=== PATIENT | male | born 1940 | race Caucasian/White ===

== ENCOUNTER → 2021-09-10 08:10 | Outpatient (CLI) | payer MEDICARE, OTHER, SELFPAY ==
[2021-09-10 19:34] LABS: TSH w/ Reflex to FT4 3.57 uIU/mL (0.47-4.68)
[2021-09-10 20:07] LABS: Folate 16.3 ng/mL (2.76-20.0); Vitamin B12 525 pg/mL (239-931)
[2021-09-17 15:25] LABS: 1,25-Dihydroxy, Vitamin D-2 <10 pg/mL (.)
== END ==
PROVIDERS: PCP Physician Assistant Medical; Visit Provider Psychiatry & Neurology Neurology
DX: R41.3 Other amnesia (principal); E55.9 Vitamin D deficiency, unspecified; F03.90 Unspecified dementia, unspecified severity, without behavioral disturbance, psychotic disturbance, mood disturbance, and anxiety; E03.9 Hypothyroidism, unspecified
CPT/HCPCS: 82607; 82652; 82746; 84443

== ENCOUNTER → 2021-12-29 09:03 | Outpatient (CLI) | payer MEDICARE, OTHER, SELFPAY ==
[2021-12-29 19:44] LABS: HEMOLYSIS < 15 (0-50)
[2021-12-29 20:02] LABS: Alanine Aminotransferase 18 IU/L (<50); Albumin 3.8 g/dL (3.5-5.0); Albumin Globulin Ratio 1.5 (1.0-2.8); Alkaline Phosphatase 50 U/L (38-126); Aspartate Aminotransferase 30 IU/L (17-59); BUN Creatinine Ratio 11.3 (6-22); Bilirubin Total 0.8 mg/dL (0.2-1.3); Blood Urea Nitrogen 11 mg/dL (9-20); Calcium 8.8 mg/dL (8.4-10.2); Carbon Dioxide 27 mmol/L (22-32); Chloride 106 mmol/L (98-107); Cholesterol 134 mg/dL (140-199); Estimated Glomerular Filt Rate > 60 mL/min (>60); Globulin 2.5 g/dL (1.7-4.1); Glucose 113 mg/dL (80-110); HDL Cholesterol 40 mg/dL (40-60); LDL Cholesterol Calculated 82 mg/dL (<100); Potassium 4.3 mmol/L (3.4-5.1); Sodium 141 mmol/L (137-145); Total Protein 6.3 g/dL (6.3-8.2); Triglycerides 61 mg/dL (35-150)
== END ==
PROVIDERS: PCP Physician Assistant Medical; Visit Provider Family Medicine
DX: Z13.6 Encounter for screening for cardiovascular disorders (principal); Z12.5 Encounter for screening for malignant neoplasm of prostate; Z00.00 Encounter for general adult medical examination without abnormal findings; Z13.1 Encounter for screening for diabetes mellitus; Z13.220 Encounter for screening for lipoid disorders
CPT/HCPCS: 80053; 80061; G0103

== ENCOUNTER → 2022-01-07 11:29 | Outpatient (CLI) | payer MEDICARE, OTHER, SELFPAY ==
[2022-01-07 18:33] LABS: Hemoglobin A1C% w Est Avg Glu 5.3 % (4.0-6.0)
== END ==
PROVIDERS: PCP Physician Assistant Medical; Visit Provider Family Medicine
DX: R73.9 Hyperglycemia, unspecified (principal)
CPT/HCPCS: 83036

== ENCOUNTER → 2022-10-20 13:47 | Outpatient (CLI) | payer MEDICARE, BC, SELFPAY ==
[2022-10-20 19:15] LABS: Add Manual Diff / Slide Review NO; Basophils Absolute Auto 0 /uL (0-100); Basophils Percent Auto 0.2 % (0-2); Eosinophils Absolute Auto 300 /uL (0-450); Eosinophils Percent Auto 6.6 % (2-4); Hematocrit 38.2 % (41-53); Hemoglobin 13.4 g/dL (13.5-17.5); Lymphocytes Absolute Auto 1200 /uL (1100-4500); Lymphocytes Percent Auto 22.4 % (25-40); Mean Corpuscular HGB Conc 35.1 % (30-36); Mean Corpuscular Hemoglobin 33.9 PG (26-34); Mean Corpuscular Volume 96.6 fL (80-100); Monocytes Absolute Auto 500 /uL (0-900); Monocytes Percent Auto 9.7 % (3-14); Neutrophils Absolute Auto 3200 /uL (1500-7000); Neutrophils Percent Auto 61.1 % (50-75); Platelet Count 143 X10^3/uL (150-400); Red Blood Cell Count 3.96 X10^6/uL (4.5-5.9); Red Cell Distribution Width 13.6 % (11.6-14.8); White Blood Cell Count 5.3 X10^3/uL (4.5-11.0)
[2022-10-20 19:32] LABS: BUN Creatinine Ratio 20.6 (6-22); Blood Urea Nitrogen 21 mg/dL (9-20); Calcium 8.7 mg/dL (8.4-10.2); Carbon Dioxide 26 mmol/L (22-32); Chloride 105 mmol/L (98-107); Cholesterol 154 mg/dL (140-199); Estimated Glomerular Filt Rate > 60 mL/min (>60); Glucose 105 mg/dL (80-110); HDL Cholesterol 43 mg/dL (40-60); HEMOLYSIS < 15 (0-50); LDL Cholesterol Calculated 82 mg/dL (<100); Potassium 4.4 mmol/L (3.4-5.1); Sodium 139 mmol/L (137-145); Triglycerides 145 mg/dL (35-150); Uric Acid 3.5 mg/dL (3.5-8.5)
[2022-10-20 20:01] LABS: TSH w/ Reflex to FT4 2.55 uIU/mL (0.47-4.68)
== END ==
PROVIDERS: PCP Family Medicine; Visit Provider Family Medicine
DX: M1A.00X0 Idiopathic chronic gout, unspecified site, without tophus (tophi) (principal); E03.9 Hypothyroidism, unspecified; D69.6 Thrombocytopenia, unspecified; F41.1 Generalized anxiety disorder; I10 Essential (primary) hypertension; R41.89 Other symptoms and signs involving cognitive functions and awareness
CPT/HCPCS: 80048; 80061; 84443; 84550; 85025

== ENCOUNTER → 2022-11-03 13:05 | Outpatient (CLI) | payer MEDICARE, BC, SELFPAY ==
[2022-11-03 20:00] LABS: HEMOLYSIS < 15 (0-50); Iron 136 ug/dL (49-181)
[2022-11-03 20:13] LABS: Percent Iron Saturation 43 % (20-50); Total Iron Binding Capacity 318 ug/dL (261-462); Transferrin 227 mg/dL (206-381)
[2022-11-03 20:56] LABS: Vitamin B12 427 pg/mL (239-931)
== END ==
PROVIDERS: PCP Family Medicine; Visit Provider Family Medicine
DX: D64.9 Anemia, unspecified (principal); D69.6 Thrombocytopenia, unspecified; I10 Essential (primary) hypertension
CPT/HCPCS: 82607; 83540; 83550

== ENCOUNTER → 2022-11-10 12:12 | Outpatient (CLI) | payer MEDICARE, BC, SELFPAY ==
[2022-11-14 17:00] LABS: Fecal Immunochemical Test Negative (Negative)
== END ==
PROVIDERS: PCP Family Medicine; Visit Provider Family Medicine
DX: D64.9 Anemia, unspecified (principal)
CPT/HCPCS: 82274

== ENCOUNTER → 2023-05-29 13:27 | Outpatient (CLI) | payer MEDICARE, BC, SELFPAY ==
[2023-05-29 19:31] LABS: Add Manual Diff / Slide Review NO; Basophils Absolute Auto 0 /uL (0-100); Basophils Percent Auto 0.5 % (0-2); Eosinophils Absolute Auto 400 /uL (0-450); Eosinophils Percent Auto 6.9 % (2-4); Hematocrit 39.8 % (41-53); Hemoglobin 13.9 g/dL (13.5-17.5); Lymphocytes Absolute Auto 1400 /uL (1100-4500); Mean Corpuscular HGB Conc 34.8 % (30-36); Mean Corpuscular Hemoglobin 34.2 PG (26-34); Mean Corpuscular Volume 98.3 fL (80-100); Monocytes Absolute Auto 600 /uL (0-900); Monocytes Percent Auto 10.4 % (3-14); Neutrophils Absolute Auto 3700 /uL (1500-7000); Neutrophils Percent Auto 59.2 % (50-75); Platelet Count 154 X10^3/uL (150-400); Red Blood Cell Count 4.05 X10^6/uL (4.5-5.9); Red Cell Distribution Width 13.4 % (11.6-14.8); White Blood Cell Count 6.2 X10^3/uL (4.5-11.0)
[2023-05-29 19:42] LABS: BUN Creatinine Ratio 19.2 (6-22); Blood Urea Nitrogen 20 mg/dL (9-20); Calcium 9.1 mg/dL (8.4-10.2); Carbon Dioxide 25 mmol/L (22-32); Chloride 105 mmol/L (98-107); Estimated Glomerular Filt Rate > 60 mL/min (>60); Glucose 88 mg/dL (80-110); HEMOLYSIS < 15 (0-50); Potassium 4.5 mmol/L (3.4-5.1); Sodium 139 mmol/L (137-145)
[2023-05-29 20:08] LABS: TSH w/ Reflex to FT4 1.62 uIU/mL (0.47-4.68)
== END ==
PROVIDERS: PCP Family Medicine; Visit Provider Family Medicine
DX: E03.9 Hypothyroidism, unspecified (principal); D64.9 Anemia, unspecified; D69.6 Thrombocytopenia, unspecified; I10 Essential (primary) hypertension; M1A.00X0 Idiopathic chronic gout, unspecified site, without tophus (tophi)
CPT/HCPCS: 80048; 84443; 84550; 85025

== ENCOUNTER 2024-03-30 00:46 | Inpatient (IN) | payer MEDICARE, BC, SELFPAY ==
[2024-03-30] VITALS (12 sets, daily range): BP systolic 135–173; BP diastolic 70–101; PULSE 87–119; RESP 14–25; TEMP 36.2–36.6; O2SAT 91–100; BMI 25.9
--- NOTE | 2024-03-30 01:09 | PC.NURSE ---
IV attempted x 2 without success
--- NOTE | 2024-03-30 01:12 | DI.CT.S_ITS ---
PROCEDURE: CT CERVICAL SPINE WO CON INDICATIONS: unwitnessed fall TECHNIQUE: Noncontrast 3 mm thick sections acquired from the skull base to the T4 level. Sagittal and coronal reformats were then constructed. For radiation dose reduction, the following was used: automated exposure control, adjustment of mA and/or kV according to patient size. COMPARISON: None. FINDINGS: Image quality: Excellent. Bones: No fractures or dislocations. Visualized superior ribs are intact. Moderate, multilevel degenerative disc disease and diffuse facet arthrosis. Soft tissues: Prevertebral soft tissues are normal in thickness. No paravertebral hematomas. No apical pneumothoraces. IMPRESSION: No displaced fracture or traumatic subluxation. Dictated by: Germán Longoria M.D. on 03/30/2024 at 2:00 Approved by: Germán Lonogria M.D. on 03/30/2024 at 2:05
--- NOTE | 2024-03-30 01:12 | DI.CT.S_ITS ---
PROCEDURE: CT HEAD/BRAIN WO CON INDICATIONS: unwitnessed fall TECHNIQUE: Noncontrast 4.5 mm thick angled axial sections acquired from the foramen magnum to the vertex, with coronal and sagittal reformats. For radiation dose reduction, the following was used: automated exposure control, adjustment of mA and/or kV according to patient size. COMPARISON: None. FINDINGS: Image quality: Diagnostic. CSF spaces: There is moderate volume subarachnoid hemorrhage overlying the anterior convexities. Superimposed subdural hematoma along the left cerebral convexity, max diameter 5 mm. Layering blood along the falx and tentorium. Brain: No intracranial bleeds or masses. There is cerebral volume loss for age, with resultant ventricular and sulcal prominence. There are periventricular and deep white matter chronic small vessel ischemic changes. There is intracranial internal carotid artery atherosclerosis. Skull and face: There is a skull fracture through the temporal bone, extending into the mastoid air cells and passing along the intra-articular margin of the TMJ. The fracture line does not extend to the otic capsule. Sinuses: Moderate volume fluid within the left mastoid air cells, presumably blood. Trace fluid within the right maxillary air cells. IMPRESSION: Left temporal bone fracture, which does not appear to extend to the otic capsule. On there is articular involvement with the left TMJ, and extension to the mastoid air cells. Moderate volume subarachnoid hemorrhage. Moderate subdural hematomas. No midline shift or herniation. Findings discussed with Dr. Pepe at to 211 am on 03/30/2024. Dictated by: Germán Longoria M.D. on 03/30/2024 at 2:05 Approved by: Germán Longoria M.D. on 03/30/2024 at 2:13
[2024-03-30 01:35] LABS: Add Manual Diff / Slide Review NO; Basophils Absolute Auto 0 /uL (0-100); Basophils Percent Auto 0.3 % (0-2); Eosinophils Absolute Auto 0 /uL (0-450); Eosinophils Percent Auto 0.2 % (2-4); Hematocrit 39.3 % (41-53); Hemoglobin 13.5 g/dL (13.5-17.5); Lymphocytes Absolute Auto 900 /uL (1100-4500); Lymphocytes Percent Auto 21.5 % (25-40); Mean Corpuscular HGB Conc 34.4 % (30-36); Mean Corpuscular Hemoglobin 33.1 PG (26-34); Mean Corpuscular Volume 96.2 fL (80-100); Monocytes Absolute Auto 500 /uL (0-900); Monocytes Percent Auto 11.6 % (3-14); Neutrophils Absolute Auto 2700 /uL (1500-7000); Neutrophils Percent Auto 66.4 % (50-75); Platelet Count 120 X10^3/uL (150-400); Red Blood Cell Count 4.08 X10^6/uL (4.5-5.9); Red Cell Distribution Width 13.4 % (11.6-14.8)
--- NOTE | 2024-03-30 01:38 | PC.NURSE ---
Pt vomited while lying flat on CT table; Dr Pepe notified, zofran given per verbal order.
[2024-03-30] MEDS: ONDANSETRON 4 MG/2 ML INJ IV ×2 (01:39→03:15)
[2024-03-30 01:47] LABS: Alanine Aminotransferase 39 IU/L (<50); Albumin Globulin Ratio 1.4 (1.0-2.8); Alkaline Phosphatase 84 U/L (38-126); Aspartate Aminotransferase 58 IU/L (17-59); BUN Creatinine Ratio 15.2 (6-22); Blood Urea Nitrogen 20 mg/dL (9-20); Calcium 8.6 mg/dL (8.4-10.2); Carbon Dioxide 23 mmol/L (22-32); Chloride 109 mmol/L (98-107); Estimated Glomerular Filt Rate 53 mL/min (>60); Globulin 2.8 g/dL (1.7-4.1); Glucose 129 mg/dL (80-110); HEMOLYSIS 29 (0-50); Potassium 3.7 mmol/L (3.4-5.1); Sodium 140 mmol/L (137-145); Total Protein 6.8 g/dL (6.3-8.2)
[2024-03-30] MEDS: SODIUM CHLORIDE 0.9% 1,000 ML 1000 ML IV (02:05)
--- NOTE | 2024-03-30 02:12 | ED.FALL ---
HPI - Fall General Chief Complaint: Fall Stated Complaint: unwitnessed fall Time Seen by Provider: 03/30/24 00:46 Source: EMS Mode of arrival: EMS History of Present Illness HPI Narrative: 84-year-old gentleman unwitnessed fall currently living at [facility] history of dementia with hallucinations and generalized decline with frequent falls, hypothyroidism, anemia, thrombocytopenia, depression and BPH. He is brought in by medics. Staff felt that he was close to his baseline according to 1 person in seemed to be less responsive according to another 1. Patient is unable to answer questions slight left facial droop he has blood coming from his left ear. He will open his eyes but is not actively responding to questions. He is able to move all extremities. He has not able to answer any questions. In review of medical records there is a note from his primary care physician on February 27 indicating that his feels that his condition is continuing to deteriorate, he falls easily has a stiff gait, increasing delusions paranoid thoughts with behavioral abnormalities, functional urinary incontinence and behavioral outbursts such that they are having difficulty keeping caretakers employed. Need was started on quetiapine for his delirium. Related Data Home Medications Medication Instructions Recorded Confirmed potassium gluconate 550 mg (90 mg) 550 mg PO DAILY 12/13/21 03/30/24 tablet buspirone 5 mg tablet 5 mg PO DAILY PRN ANXIETY 03/21/24 03/30/24 quetiapine 100 mg tablet See Rx Instructions .Route .COMPLEX 03/25/24 03/30/24 Previous Rx's Medication Instructions Recorded levothyroxine 25 mcg tablet 25 mcg PO DAILY #90 tabs 08/28/23 allopurinol 300 mg tablet 300 mg PO QDAY #90 tabs 03/06/24 acetaminophen 500 mg tablet See Rx Instructions PO Q6H PRN leg 03/21/24 (Tylenol Extra Strength) pain #90 tabs fluticasone propionate 50 2 spray intranasal QDAY ##3 03/21/24 mcg/actuation nasal spray,suspension betaxolol 0.5 % eye drops 1 drp EYE-LEFT BID #10 mL 03/22/24 latanoprost 0.005 % eye drops 1 drp EYE-LEFT DAILY #7.5 mL 03/22/24 fluoxetine 40 mg capsule 40 mg PO DAILY #90 caps 03/25/24 Allergies Allergy/AdvReac Type Severity Reaction Status Date / Time No Known Drug Allergies Allergy Verified 02/28/24 12:02 Review of Systems Review of Systems ROS Unobtainable: Unobtainable due to mental status/LOC Patient History Medical History 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) Frequent falls Hallucinations due to late onset dementia Hypothyroidism (acquired) Anemia Urinary incontinence Thrombocytopenia Hypertension, essential Allergic rhinitis, unspecified Acquired spondylolysis of lumbar spine Social History household members: other Smoking Status: Never smoker alcohol intake: former Smoking Status: Never smoker Exam Initial Vital Signs Initial Vital Signs: Vital Signs Temperature 97.2 F L 03/30/24 00:47 Pulse Rate 119 H 03/30/24 00:47 Respiratory Rate 18 03/30/24 00:47 Blood Pressure 137/70 03/30/24 00:47 Pulse Oximetry 91 03/30/24 00:47 Oxygen Delivery Method Room Air 03/30/24 00:47 General: No acute distress, protecting his airway, blood is draining from his left ear. No other obvious trauma to his head is appreciated. Neck: No obvious step-off with cervical spine palpation HEENT: Red blood is coming from his left ear. This is gently cleaned, tympanic membrane seems to be draining out with the blood. Patient has minimal response to the gentle attempts to clean the blood Respiratory: Lungs are clear to auscultation, no wheezing no rales no rhonchi. Full and symmetrical air movement Cardiac: Tachycardic: Regular rate and rhythm no murmurs no bruits Abdomen: Soft, nontender, good bowel tones, no flank pain Skin: Multiple bruises from previous falls, small can skin tear to the right elbow Neurologic: Left-sided facial droop, he is not oriented to person time and place, he does have nonpurposeful movement of all extremities Extremities: Abrasions and contusions but no obvious bony abnormalities Psych: Significant dementia with inability to answer questions or meaningfully participate with conversations including following commands Course Orders Ordered: Acetaminophen (Acetaminophen 325 Mg Tablet) 650 mg PO Q6H PRN PRN Reason: Fever/Mild Pain (1-3) Artificial Tears (Carboxymethylcellulose Drops) 1 drops EYE-BOTH PRN PRN PRN Reason: Dry Eye(s) Last Admin: 04/01/24 13:58 Dose: 1 drop Documented By: CORAZON Haloperidol (Haloperidol 5 Mg/Ml Vial) 2 mg IV Q1HR PRN PRN Reason: Agitation Hydromorphone HCl (Hydromorphone 0.5 Mg Inj) 0.5 mg IV Q2H PRN PRN Reason: Pain, Severe (7-10) Last Admin: 04/01/24 08:57 Dose: 0.5 mg Documented By: Admin: 04/01/24 07:13 Dose: 0.5 mg Documented By: Admin: 04/01/24 04:50 Dose: 0.5 mg Documented By: Admin: 04/01/24 02:54 Dose: 0.5 mg Documented By: Admin: 04/01/24 01:20 Dose: 0.5 mg Documented By: Admin: 03/31/24 21:11 Dose: 0.5 mg Documented By: Admin: 03/31/24 18:17 Dose: 0.5 mg Documented By: Admin: 03/31/24 15:42 Dose: 0.5 mg Documented By: Admin: 03/31/24 12:47 Dose: 0.5 mg Documented By: Admin: 03/31/24 10:05 Dose: 0.5 mg Documented By: Admin: 03/31/24 06:24 Dose: 0.5 mg Documented By: Admin: 03/31/24 00:50 Dose: 0.5 mg Documented By: Admin: 03/30/24 20:46 Dose: 0.5 mg Documented By: Admin: 03/30/24 18:26 Dose: 0.5 mg Documented By: Admin: 03/30/24 12:40 Dose: 0.5 mg Documented By: AKP Morphine Sulfate 50 mg/ Sodium (Chloride) 50 mls @ 7 mls/hr IV TITRATE MANAN; Protocol Last Admin: 04/01/24 19:32 Dose: 5 mg/hr, 5 mls/hr Documented By: Titration: 04/01/24 19:32 Dose: Infused Documented By: Admin: 04/01/24 11:14 Dose: 5 mg/hr, 5 mls/hr Documented By: CORAZON Latanoprost (Latanoprost 0.005% Ophth 2.5 Ml) 1 drops EYE-LEFT BEDTIME [facility] Last Admin: 04/01/24 21:05 Dose: Not Given Documented By: Admin: 03/31/24 22:01 Dose: Not Given Documented By: Admin: 03/30/24 20:55 Dose: Not Given Documented By: SR Lorazepam (Lorazepam 2 Mg/Ml Inj) 1 mg IV Q1HR PRN PRN Reason: Agitation/Anxiety Last Admin: 04/01/24 19:28 Dose: 1 mg Documented By: Admin: 04/01/24 13:59 Dose: 1 mg Documented By: CORAZON Naloxone HCl (Naloxone 0.4 Mg/Ml Vial) 0.2 mg IV Q2MIN PRN PRN Reason: Opiate Reversal Ondansetron HCl (Ondansetron 4 Mg Odt) 4 mg PO Q8HR PRN PRN Reason: Nausea And Vomiting Sodium Chloride (Sodium Chloride 0.9% Flush) 10 ml IV PRN PRN PRN Reason: Flush Sodium Chloride (Sodium Chloride 0.9% Flush) 10 ml IV BID [facility] Last Admin: 04/01/24 20:46 Dose: Not Given Documented By: Admin: 04/01/24 08:57 Dose: 10 ml Documented By: Admin: 03/31/24 22:01 Dose: 10 ml Documented By: Admin: 03/31/24 10:05 Dose: 10 ml Documented By: Admin: 03/30/24 20:57 Dose: 10 ml Documented By: Discontinued Medications Buspirone HCl (Buspirone 5 Mg Tablet) 5 mg PO DAILY PRN PRN Reason: Anxiety Fluoxetine HCl (Fluoxetine 20 Mg Capsule) 40 mg PO DAILY [facility] Last Admin: 04/01/24 08:40 Dose: Not Given Documented By: Admin: 03/31/24 08:23 Dose: Not Given Documented By: Admin: 03/30/24 09:26 Dose: Not Given Documented By: ROSALBA Haloperidol (Haloperidol 5 Mg/Ml Vial) 5 mg IV NOW ONE Stop: 03/30/24 03:12 Last Admin: 03/30/24 03:16 Dose: 5 mg Documented By: DAKOTA Haloperidol (Haloperidol 5 Mg/Ml Vial) 5 mg IV Q4HR PRN PRN Reason: Agitation Last Admin: 04/01/24 01:20 Dose: 5 mg Documented By: Admin: 03/31/24 21:11 Dose: 5 mg Documented By: Admin: 03/31/24 10:34 Dose: 5 mg Documented By: Admin: 03/31/24 05:28 Dose: 5 mg Documented By: Admin: 03/30/24 23:14 Dose: 5 mg Documented By: Admin: 03/30/24 17:47 Dose: 5 mg Documented By: Admin: 03/30/24 09:31 Dose: 5 mg Documented By: ROSALBA Hydromorphone HCl (Hydromorphone 0.5 Mg Inj) 0.5 mg IV Q15MIN PRN PRN Reason: Pain, Last Admin: 03/30/24 02:40 Dose: 0.5 mg Documented By: KUSH Sodium Chloride (Normal Saline 0.9%) 1,000 mls @ 1,000 mls/hr IV BOLUS ONE Stop: 03/30/24 02:56 Last Infusion: 03/30/24 03:23 Dose: Infused Documented By: Admin: 03/30/24 02:05 Dose: 1,000 mls/hr Documented By: KUSH Levothyroxine Sodium (Levothyroxine 25 Mcg Tablet) 25 mcg PO QACBREAK [facility] Last Admin: 04/01/24 06:28 Dose: Not Given Documented By: Admin: 03/31/24 06:38 Dose: Not Given Documented By: Admin: 03/30/24 07:36 Dose: Not Given Documented By: ROSALBA Lorazepam (Lorazepam 2 Mg/Ml Inj) 2 mg IV NOW ONE Stop: 03/30/24 03:39 Last Admin: 03/30/24 03:43 Dose: 2 mg Documented By: KUSH Ondansetron HCl (Ondansetron 4 Mg/2 Ml Inj) 4 mg IV NOW ONE Stop: 03/30/24 01:38 Last Admin: 03/30/24 01:39 Dose: 4 mg Documented By: DAKOTA Ondansetron HCl (Ondansetron 4 Mg/2 Ml Inj) 4 mg IV NOW ONE Stop: 03/30/24 03:24 Last Admin: 03/30/24 03:15 Dose: 4 mg Documented By: KUSH Oxycodone HCl (Oxycodone Ir 5 Mg Tablet) 5 mg PO Q3H PRN PRN Reason: Pain, Moderate (4-6) Quetiapine Fumarate (Quetiapine 100 Mg Tablet) 100 mg PO DAILY [facility] Last Admin: 04/01/24 08:41 Dose: Not Given Documented By: Admin: 03/31/24 08:24 Dose: Not Given Documented By: Admin: 03/30/24 09:26 Dose: Not Given Documented By: ROSALBA Quetiapine Fumarate (Quetiapine 100 Mg Tablet) 200 mg PO BEDTIME [facility] Last Admin: 03/31/24 22:01 Dose: Not Given Documented By: Admin: 03/30/24 20:55 Dose: Not Given Documented By: Vital Signs Vital signs: Vital Signs - 8 hr 03/30/24 00:47 03/30/24 00:54 03/30/24 01:00 Temperature 97.2 F L Pulse Rate 119 H 113 H 114 H Respiratory Rate 18 21 21 Blood Pressure 137/70 Pulse Oximetry 91 96 94 Oxygen Delivery Method Room Air 03/30/24 01:00 03/30/24 01:42 03/30/24 01:42 Temperature Pulse Rate 109 H Respiratory Rate Blood Pressure 158/84 H 173/80 H Pulse Oximetry 93 Oxygen Delivery Method 03/30/24 02:00 03/30/24 02:00 03/30/24 02:30 Temperature Pulse Rate 107 H 116 H Respiratory Rate 25 H 23 Blood Pressure 144/70 H Pulse Oximetry 95 97 Oxygen Delivery Method 03/30/24 02:30 03/30/24 03:00 03/30/24 03:00 Temperature Pulse Rate 101 H Respiratory Rate 14 Blood Pressure 173/76 H 164/78 H Pulse Oximetry 93 Oxygen Delivery Method MDM - Fall Lab Data 03/30/24 01:20 03/30/24 01:20 Labs: Lab Results 03/30/24 Range/Units 01:20 WBC 4.0 L (4.5-11.0) X10^3/uL RBC 4.08 L (4.5-5.9) X10^6/uL Hgb 13.5 (13.5-17.5) g/dL Hct 39.3 L (41-53) % MCV 96.2 (80-100) fL MCH 33.1 (26-34) PG MCHC 34.4 (30-36) % RDW 13.4 (11.6-14.8) % Plt Count 120 L (150-400) X10^3/uL Neut % (Auto) 66.4 (50-75) % Lymph % (Auto) 21.5 L (25-40) % [place] % (Auto) 11.6 (3-14) % Eos % (Auto) 0.2 L (2-4) % Baso % (Auto) 0.3 (0-2) % Neut # (Auto) 2700 (4156-8585) /uL Lymph # (Auto) 900 L (7992-8250) /uL [place] # (Auto) 500 (0-900) /uL Eos # (Auto) 0 (0-450) /uL Baso # (Auto) 0 (0-100) /uL Sodium 140 (137-145) mmol/L Potassium 3.7 (3.4-5.1) mmol/L Chloride 109 H (98-107) mmol/L Carbon Dioxide 23 (22-32) mmol/L BUN 20 (9-20) mg/dL Creatinine 1.32 H (0.66-1.25) mg/dL Estimated GFR 53 L (>60) mL/min BUN/Creatinine Ratio 15.2 (6-22) Glucose 129 H (80-110) mg/dL Calcium 8.6 (8.4-10.2) mg/dL Total Bilirubin 1.0 (0.2-1.3) mg/dL AST 58 (17-59) IU/L ALT 39 (<50) IU/L Alkaline Phosphatase 84 (38-126) U/L Total Protein 6.8 (6.3-8.2) g/dL Albumin 4.0 (3.5-5.0) g/dL Globulin 2.8 (1.7-4.1) g/dL Albumin/Globulin Ratio 1.4 (1.0-2.8) Imaging Data CT scan - head: Radiologist's Impression: PROCEDURE: CT HEAD/BRAIN WO CON INDICATIONS: unwitnessed fall TECHNIQUE: Noncontrast 4.5 mm thick angled axial sections acquired from the foramen magnum to the vertex, with coronal and sagittal reformats. For radiation dose reduction, the following was used: automated exposure control, adjustment of mA and/or kV according to patient size. COMPARISON: None. FINDINGS: Image quality: Diagnostic. CSF spaces: There is moderate volume subarachnoid hemorrhage overlying the anterior convexities. Superimposed subdural hematoma along the left cerebral convexity, max diameter 5 mm. Layering blood along the falx and tentorium. Brain: No intracranial bleeds or masses. There is cerebral volume loss for age, with resultant ventricular and sulcal prominence. There are periventricular and deep white matter chronic small vessel ischemic changes. There is intracranial internal carotid artery atherosclerosis. Skull and face: There is a skull fracture through the temporal bone, extending into the mastoid air cells and passing along the intra-articular margin of the TMJ. The fracture line does not extend to the otic capsule. Sinuses: Moderate volume fluid within the left mastoid air cells, presumably blood. Trace fluid within the right maxillary air cells. IMPRESSION: Left temporal bone fracture, which does not appear to extend to the otic capsule. On there is articular involvement with the left TMJ, and extension to the mastoid air cells. Moderate volume subarachnoid hemorrhage. Moderate subdural hematomas. No midline shift or herniation. Findings discussed with Dr. Pepe at to 211 am on 03/30/2024. Dictated by: Germán Longoria M.D. on 03/30/2024 at 2:05 MDM Narrative Medical decision making narrative: CC: Unwitnessed fall at nursing facility Complicating co-morbidities: Advanced dementia Data collected from: Medics, medical records Social determinants of health that may influence the patients condition: Significant progressive dementia with dramatic decline overall in last number of months Medical records reviewed: Primary care note from February reviewed and summarized in HPI Differential considered: Intracranial hemorrhage, basilar skull fracture, cervical spine fracture, stroke, Exam documented above, pertinent findings include: Blood actively draining from his left ear canal. Slight left facial droop. Nonpurposeful movement of all 4 extremities. He has not verbal but is protecting his airway at this time. Slightly tachycardic Lab Test results independently reviewed as above. Pertinent findings: CBC shows white count at 4, no significant anemia, platelets at 120 Chemistries show slight bump in creatinine remainder is unremarkable Imaging studies independently reviewed: CT scan of the head shows multiple abnormalities including - Left temporal bone fracture, which does not appear to extend to the otic capsule. - articular involvement with the left TMJ, and extension to the mastoid air cells. -Moderate volume subarachnoid hemorrhage. -Moderate subdural hematomas. -No midline shift or herniation. Cervical spine CT does not show acute fractures Consultations: Real-time discussion with Radiology regarding CT scan abnormalities Treatments: Fluids, Zofran, parenteral narcotics for pain behaviors Re-evaluations: 230am phone call to his at [phone]. She currently is at home on [address]. I have explained to her that he has had quite a bit of bleeding in his head along with a skull fracture after a fall. We will be admitting him to [facility] and will keep him DNR/DNI. At this point he is maintaining his airway. We will need to see how he progresses over the next number of hours to decide if complete hospice care will be appropriate or if he will be able to return to [facility]. She will be catching the next available [facility] from [facility] [address] patient began vomiting in CT scan. Was given Zofran. Another dose of Zofran given for more vomiting this point. He is tachycardic. Eyes becoming more restless and agitated. We will try 5 mg of Haldol to see if this helps with both the continued nausea as well as the restlessness. 330 Son called. findings, concerns and plans are reviewed with him. he agrees with plans as outlined and understands the critical prognosis 340am increasing agitation and nausea. 2mg haldol tried, minimally helpful. Will try 2 mg of ativan to help with both the agitation and nausea Discussion: 84-year-old gentleman with progressive dementia he has been in a dementia care facility for the last 2 weeks. Unwitnessed fall today with basilar skull fracture, subdural and subarachnoid hemorrhages. DNR DNI at this point waiting for his to decide if he needs to move to full comfort measures and need to continue to clinically evaluate him. His is in route. Will treat his pain as behaviors indicate he is hurting. We will contact our hospitalist service. Reason for hospital admission is to help make sure that transition back to [facility] is appropriate, he may be more appropriate to go to long-term side with anticipation of full comfort care, if he does begin to rapidly deteriorate in the next couple of hours will obviously shift to full comfort care. It may be that his bleeding stops and he is continuing in his significant dementia decline and could go back to [facility] dementia unit. I believe discussions with the , serial evaluations of the patient over the next 12 hours will help with appropriate disposition and discharge care. Care is reviewed with Dr. Odell Critical Care Time Critical Care Time Critical Care Time: Yes Total Critical Care Time: 36 Attestation: Critical care time is separate from other billable procedures. There is a high probability of a significant, sudden or life-threatening deterioration that requires my full and direct attention, intervention and personal management. This critical care time includes consultation with family and other consulting doctors, review of records, and interpretation of data from labs, EKGs and imaging as well as managements of trauma, intracranial hemorrhage, increasing agitation, multiple family discussions regarding end of life care Discharge Plan Departure Patient Disposition: Admitted as Observation Clinical Impression: Subarachnoid hemorrhage, Subdural hemorrhage, DNR (do not resuscitate) Advanced dementia Qualifiers: Dementia type: unspecified type Dementia behavioral or psychological symptom: with other behavioral disturbance Qualified Code(s): F03.C18 - Unspecified dementia, severe, with other behavioral disturbance Fall Qualifiers: Encounter type: initial encounter Qualified Code(s): W19.XXXA - Unspecified fall, initial encounter Basilar skull fracture Qualifiers: Encounter type: initial encounter Fracture type: open Laterality: left Qualified Code(s): S02.102B - Fracture of base of skull, left side, initial encounter for open fracture Admit Date/Time: 03/30/24 03:09 Admit Provider: Andres Anand
--- NOTE | 2024-03-30 02:30 | PC.NURSE ---
pt becoming restless attempting to get out of bed, confused, briefs changed and warm blanket given
[2024-03-30] MEDS: HYDROMORPHONE 0.5 MG INJ IV ×4 (02:40→20:46)
[2024-03-30] MEDS: HALOPERIDOL 5 MG/ML VIAL IV ×4 (03:16→23:14)
--- NOTE | 2024-03-30 03:20 | PC.NURSE ---
pt vomiting, assisted pt to the side and suctioned, bed linens changed, pt medicated per orders, warm blankets given and lights dimmed
[2024-03-30] MEDS: LORazepam 2 MG/ML INJ IV (03:43)
--- NOTE | 2024-03-30 03:49 | P.HP_ITS ---
History of Present Illness History of Present Illness Date Patient Seen: 03/30/24 Chief complaint: unwitnessed fall Narrative: 84 y/o resident of memory care with PMH of dementia, recurrent falls and worsening behaviors lately, presented after he fell, with Lt temporal bone fracture, SAH, SDH. He is DNR, DNI and unable to make decisions due to cognitive deficits. Placed in observation. 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) Frequent falls Hallucinations due to late onset dementia Hypothyroidism (acquired) Anemia Urinary incontinence Thrombocytopenia Hypertension, essential Allergic rhinitis, unspecified Acquired spondylolysis of lumbar spine Social History household members: other Smoking Status: Never smoker alcohol intake: former Meds Home Medications and Allergies Home Medications Medication Instructions Recorded Confirmed Type potassium gluconate 550 mg (90 mg) 550 mg PO DAILY 12/13/21 03/30/24 History tablet levothyroxine 25 mcg tablet 25 mcg PO DAILY #90 tabs 08/28/23 03/30/24 Rx allopurinol 300 mg tablet 300 mg PO QDAY #90 tabs 03/06/24 03/30/24 Rx acetaminophen 500 mg tablet See Rx Instructions PO Q6H PRN leg 03/21/24 03/30/24 Rx (Tylenol Extra Strength) pain #90 tabs buspirone 5 mg tablet 5 mg PO DAILY PRN ANXIETY 03/21/24 03/30/24 History fluticasone propionate 50 2 spray intranasal QDAY ##3 03/21/24 03/30/24 Rx mcg/actuation nasal spray,suspension betaxolol 0.5 % eye drops 1 drp EYE-LEFT BID #10 mL 03/22/24 03/30/24 Rx latanoprost 0.005 % eye drops 1 drp EYE-LEFT DAILY #7.5 mL 03/22/24 03/30/24 Rx fluoxetine 40 mg capsule 40 mg PO DAILY #90 caps 03/25/24 03/30/24 Rx quetiapine 100 mg tablet See Rx Instructions .Route .COMPLEX 03/25/24 03/30/24 History Allergies Allergy/AdvReac Type Severity Reaction Status Date / Time No Known Drug Allergies Allergy Verified 02/28/24 12:02 Review of Systems Review of Systems Narrative: unobtainable due to cognitive deficits Exam Vital Signs (past 8 hours): - 03/30/24 00:47 03/30/24 00:54 03/30/24 01:00 Temperature 97.2 F L Pulse Rate 119 H 113 H 114 H Respiratory Rate 18 21 21 Blood Pressure 137/70 Pulse Oximetry 91 96 94 Oxygen Delivery Method Room Air 03/30/24 01:00 03/30/24 01:42 03/30/24 01:42 Temperature Pulse Rate 109 H Respiratory Rate Blood Pressure 158/84 H 173/80 H Pulse Oximetry 93 Oxygen Delivery Method 03/30/24 02:00 03/30/24 02:00 03/30/24 02:30 Temperature Pulse Rate 107 H 116 H Respiratory Rate 25 H 23 Blood Pressure 144/70 H Pulse Oximetry 95 97 Oxygen Delivery Method 03/30/24 02:30 03/30/24 03:00 03/30/24 03:00 Temperature Pulse Rate 101 H Respiratory Rate 14 Blood Pressure 173/76 H 164/78 H Pulse Oximetry 93 Oxygen Delivery Method Oxygen Delivery Method Room Air HENMT Other: traumatic, he is bleeding from Lt ear Eyes Other: equal pupils, eomi Resp Other: poor respiratory effort Cardio Other: RRR Neuro Other: cognitive deficits, moves all extremities Objective Labs 03/30/24 01:20 03/30/24 01:20 Labs: Laboratory Results - last 24 hr 03/30/24 01:20 WBC 4.0 L RBC 4.08 L Hgb 13.5 Hct 39.3 L MCV 96.2 MCH 33.1 MCHC 34.4 RDW 13.4 Plt Count 120 L Neut % (Auto) 66.4 Lymph % (Auto) 21.5 L [place] % (Auto) 11.6 Eos % (Auto) 0.2 L Baso % (Auto) 0.3 Neut # (Auto) 2700 Lymph # (Auto) 900 L [place] # (Auto) 500 Eos # (Auto) 0 Baso # (Auto) 0 Sodium 140 Potassium 3.7 Chloride 109 H Carbon Dioxide 23 BUN 20 Creatinine 1.32 H Estimated GFR 53 L BUN/Creatinine Ratio 15.2 Glucose 129 H Calcium 8.6 Total Bilirubin 1.0 AST 58 ALT 39 Alkaline Phosphatase 84 Total Protein 6.8 Albumin 4.0 Globulin 2.8 Albumin/Globulin Ratio 1.4 Assessment & Plan Assessment and plan (1) Subdural hemorrhage: Status: Acute (2) Subarachnoid hemorrhage: Status: Acute (3) Basilar skull fracture: Qualifiers: Encounter type: initial encounter Fracture type: open Laterality: left Qualified Code(s): S02.102B - Fracture of base of skull, left side, initial encounter for open fracture Status: Acute (4) Advanced dementia: Qualifiers: Dementia behavioral or psychological symptom: with other behavioral disturbance Dementia type: unspecified type Qualified Code(s): F03.C18 - Unspecified dementia, severe, with other behavioral disturbance Status: Acute (5) BPH (benign prostatic hyperplasia): Qualifiers: Lower urinary tract symptom detail: urinary frequency Lower urinary tract symptom presence: symptoms present Qualified Code(s): N40.1 - Benign prostatic hyperplasia with lower urinary tract symptoms; R35.0 - Frequency of micturition Status: Acute (6) Gout: Qualifiers: Chronicity: chronic Gout etiology: idiopathic Gout site: unspecified site Presence of tophus: without tophus Qualified Code(s): M1A.00X0 - Idiopathic chronic gout, unspecified site, without tophus (tophi) Status: Acute Assessment & Plan narrative: GLF, Traumatic Head Injury - recurrent falls - fractured Lt temporal bone, SAH SDH, w/o midline shift - placed in observation for comfort care overnight - transfer to memory care in am, likely with hospice Dementia, Anxiety, Depression - progressive cognitive deficits - poor prognosis - continues with Seroquel, Prozac, Buspar Glaucoma - eye drops DVT prohylaxis - SCDs Time-Based Coding :: [TOTAL MINUTES] spent with patient and on the chart (including review of chart, obtaining history, exam, reviewing outside data, placing orders, documenting exam and treatment plan, and counseling patient) on [DATE].
--- NOTE | 2024-03-30 05:10 | PC.ADMIT ---
[email or web address] Admission Note: The patient,Scottie Owen,84 y/o, was given written information regarding hospital policies, unit procedures and contact persons. Patient's smoking status: Never smoker. Vital Signs - 8 hr 03/30/24 00:47 03/30/24 00:54 03/30/24 01:00 Temperature 97.2 F L Pulse Rate 119 H 113 H 114 H Respiratory Rate 18 21 21 Blood Pressure 137/70 Pulse Oximetry 91 96 94 Oxygen Delivery Method Room Air Oxygen Flow Rate 03/30/24 01:00 03/30/24 01:42 03/30/24 01:42 Temperature Pulse Rate 109 H Respiratory Rate Blood Pressure 158/84 H 173/80 H Pulse Oximetry 93 Oxygen Delivery Method Oxygen Flow Rate 03/30/24 02:00 03/30/24 02:00 03/30/24 02:30 Temperature Pulse Rate 107 H 116 H Respiratory Rate 25 H 23 Blood Pressure 144/70 H Pulse Oximetry 95 97 Oxygen Delivery Method Oxygen Flow Rate 03/30/24 02:30 03/30/24 03:00 03/30/24 03:00 Temperature Pulse Rate 101 H Respiratory Rate 14 Blood Pressure 173/76 H 164/78 H Pulse Oximetry 93 Oxygen Delivery Method Oxygen Flow Rate 03/30/24 04:24 03/30/24 04:30 03/30/24 05:05 Temperature 97.7 F Pulse Rate 119 H 118 H Respiratory Rate 18 Blood Pressure 162/101 H 162/101 H Pulse Oximetry 94 Oxygen Delivery Method Nasal Cannula Oxygen Flow Rate 5 Patient up from ED via stretcher. Very somulant d/t multiple meds given for agitation and confusion. No vomiting since up to ac bed. Blood coming from lf ear but no actual damage to ear, chucks pads placed for drainage. O2 placed into mouth, pt mouth breathing. Sats up to 94% on 5L. Patient is resting in bed at this time.
--- NOTE | 2024-03-30 07:46 | PM.HP.1 ---
History of Present Illness History of Present Illness Date Patient Seen: 03/30/24 Chief complaint: unwitnessed fall Narrative: From night doctor: 84 y/o resident of memory care with PMH of dementia, recurrent falls and worsening behaviors lately, presented after he fell, with Lt temporal bone fracture, SAH, SDH. He is DNR, DNI and unable to make decisions due to cognitive deficits. Placed in observation. Additional information: The patient is not able to communicate. I did meet with 2 sons, friend, the . He was been in memory care for about 2 weeks. He does have history of falls prior to this as well as progressive dementia and inability to be cared for at home. He was a advance directive which really does not spell out DNR but does indicate that he would not want to be maintained indefinitely if he had a terminal illness or injury. We discussed the severity of his head trauma with subdural hematoma and subarachnoid hemorrhage. 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) Frequent falls Hallucinations due to late onset dementia Hypothyroidism (acquired) Anemia Urinary incontinence Thrombocytopenia Hypertension, essential Allergic rhinitis, unspecified Acquired spondylolysis of lumbar spine Social History household members: other Smoking Status: Never smoker alcohol intake: former Meds Home Medications and Allergies Home Medications Medication Instructions Recorded Confirmed Type potassium gluconate 550 mg (90 mg) 550 mg PO DAILY 12/13/21 03/30/24 History tablet levothyroxine 25 mcg tablet 25 mcg PO DAILY #90 tabs 08/28/23 03/30/24 Rx allopurinol 300 mg tablet 300 mg PO QDAY #90 tabs 03/06/24 03/30/24 Rx acetaminophen 500 mg tablet See Rx Instructions PO Q6H PRN leg 03/21/24 03/30/24 Rx (Tylenol Extra Strength) pain #90 tabs buspirone 5 mg tablet 5 mg PO DAILY PRN ANXIETY 03/21/24 03/30/24 History fluticasone propionate 50 2 spray intranasal QDAY ##3 03/21/24 03/30/24 Rx mcg/actuation nasal spray,suspension betaxolol 0.5 % eye drops 1 drp EYE-LEFT BID #10 mL 03/22/24 03/30/24 Rx latanoprost 0.005 % eye drops 1 drp EYE-LEFT DAILY #7.5 mL 03/22/24 03/30/24 Rx fluoxetine 40 mg capsule 40 mg PO DAILY #90 caps 03/25/24 03/30/24 Rx quetiapine 100 mg tablet See Rx Instructions .Route .COMPLEX 03/25/24 03/30/24 History Allergies Allergy/AdvReac Type Severity Reaction Status Date / Time No Known Drug Allergies Allergy Verified 02/28/24 12:02 Review of Systems Review of Systems Narrative: Not obtainable due to dementia. Exam Vital Signs (past 8 hours): - 03/30/24 00:47 03/30/24 00:54 03/30/24 01:00 Temperature 97.2 F L Pulse Rate 119 H 113 H 114 H Respiratory Rate 18 21 21 Blood Pressure 137/70 Pulse Oximetry 91 96 94 Oxygen Delivery Method Room Air Oxygen Flow Rate 03/30/24 01:00 03/30/24 01:42 03/30/24 01:42 Temperature Pulse Rate 109 H Respiratory Rate Blood Pressure 158/84 H 173/80 H Pulse Oximetry 93 Oxygen Delivery Method Oxygen Flow Rate 03/30/24 02:00 03/30/24 02:00 03/30/24 02:30 Temperature Pulse Rate 107 H 116 H Respiratory Rate 25 H 23 Blood Pressure 144/70 H Pulse Oximetry 95 97 Oxygen Delivery Method Oxygen Flow Rate 03/30/24 02:30 03/30/24 03:00 03/30/24 03:00 Temperature Pulse Rate 101 H Respiratory Rate 14 Blood Pressure 173/76 H 164/78 H Pulse Oximetry 93 Oxygen Delivery Method Oxygen Flow Rate 03/30/24 04:24 03/30/24 04:30 03/30/24 05:05 Temperature 97.7 F Pulse Rate 119 H 118 H Respiratory Rate 18 Blood Pressure 162/101 H 162/101 H Pulse Oximetry 94 Oxygen Delivery Method Nasal Cannula Oxygen Flow Rate 5 Oxygen Delivery Method Nasal Cannula Oxygen Flow Rate 5 Narrative Exam Narrative: Somnolent, calm. Non-responsive. Non-verbal. Normocephalic skull, anicteric sclera, right artificial eye. Oropharynx unremarkable, no droop. Neck supple, midline trachea, no adenopathy. Lungs clear, normal rate and effort. Heart regular, no murmur gallop or rub. Abdomen is soft, non distended and non tender. Extremities are free of edema. Skin is free of rash or lesions. Joints are not swollen or deformed. No posturing, minimal movement spontaneously arms or legs. No vocalization. Objective Imaging CT scan - head: Radiologist's impression: Left temporal bone fracture, which does not appear to extend to the otic capsule. On there is articular involvement with the left TMJ, and extension to the mastoid air cells. Moderate volume subarachnoid hemorrhage. Moderate subdural hematomas. No midline shift or herniation. CT C-spine:: Radiologist's impression: No displaced fracture or traumatic subluxation. Labs 03/30/24 01:20 03/30/24 01:20 Labs: Laboratory Results - last 24 hr 03/30/24 01:20 WBC 4.0 L RBC 4.08 L Hgb 13.5 Hct 39.3 L MCV 96.2 MCH 33.1 MCHC 34.4 RDW 13.4 Plt Count 120 L Neut % (Auto) 66.4 Lymph % (Auto) 21.5 L [place] % (Auto) 11.6 Eos % (Auto) 0.2 L Baso % (Auto) 0.3 Neut # (Auto) 2700 Lymph # (Auto) 900 L [place] # (Auto) 500 Eos # (Auto) 0 Baso # (Auto) 0 Sodium 140 Potassium 3.7 Chloride 109 H Carbon Dioxide 23 BUN 20 Creatinine 1.32 H Estimated GFR 53 L BUN/Creatinine Ratio 15.2 Glucose 129 H Calcium 8.6 Total Bilirubin 1.0 AST 58 ALT 39 Alkaline Phosphatase 84 Total Protein 6.8 Albumin 4.0 Globulin 2.8 Albumin/Globulin Ratio 1.4 Assessment & Plan Assessment & Plan narrative: GLF, Traumatic Head Injury - recurrent falls - fractured Lt temporal bone, SAH SDH, w/o midline shift - placed in observation for comfort care overnight - transfer to memory care in am, likely with hospice Dementia, Anxiety, Depression - progressive cognitive deficits - poor prognosis - continues with Seroquel, Prozac, Buspar Glaucoma - eye drops PLAN: -DNR status, discussed with family. -hospice referral, discussed with family. -repeat CT at 2:00 p.m. to help prognosticate timelines. -Haldol prn. DVT prohylaxis - SCDs Time-Based Coding :: 35 min spent with patient and on the chart (including review of chart, obtaining history, exam, reviewing outside data, placing orders, documenting exam and treatment plan, and counseling patient) on 03/30. Quality MIPS - Admit I confirm the patient?s Advance Care Plan is present, Code status is documented, Surrogate decision maker is in patient?s record [If Yes, STOP here]: Yes MIPS - Meds 'Current medications' to include all prescriptions, [id number] products, herbals, cannabis/cannabidiol products, and vitamin/mineral/dietary (nutritional) supplements. I have utilized all available resources to obtain, update, or review the patient?s current medications. [If Yes, STOP here]: Yes
--- NOTE | 2024-03-30 09:06 | CM.DANOTE ---
Initial DCP Assessment Note Pt is an 84 yo male, has been living at [facility] for the past few weeks, was at home w/spouse on [facility] previously. Patient arrives after an unwitnessed fall at [facility], record indicates patient has advanced dementia and has been declining rapidly. PCP: Prabhu Lan ([facility]) Payer: [facility]/[employer] [place] Reviewed chart, met w/patient's son at bedside this morning, patient is not responsive during this visit, appears comfortable. Son explains his step mom, patient's , is traveling from [facility] this morning. Patient's other son Germán is also on his way. This WET POUR SUPERVISOR will wait for family arrival to complete initial assessment and discuss next steps in plan of care. CM team will plan to follow clinical course closely. TERESA Mares Discharge Planning/Care Management CM Discharge Assessment Start: 03/30/24 09:03 Freq: Status: Active Protocol: Document 03/30/24 09:03 JACKIE (Rec: 03/30/24 09:06 JACKIE [id number]) Discharge Planning Assessment Assigned Dust Control Engineer TERESA Cruz DPOA/Assigned Designee Name Maria C Owen, spouse Contact Information [phone] Advance Directives? No History Provided By Family Member,Medical Record Prior Living Arrangements Assisted Living Household Members other Type of transporation used prior to Relies on Others admit Facility Name Admitted From: [facility] Willing to Return to Facility? Yes Independent with ADL's No Is patient alert and oriented? No Needs Assistance With Bathing,Eating,Grooming,Meal Prep,Toileting,Managing Medications,Home Chores / Shopping Barriers to Discharge Yes Comment Need goals of care conversation with spouse/ family Transportation Arrangement TBD
--- NOTE | 2024-03-30 13:50 | CM.DPNOTE ---
DCP Cont Met w/patient's spouse and two sons in room; family has met with provider and have decided on hospice care. Family prefers patient discharge back to [facility] w/hospice if possible. Placed call to [facility] spoke with Josefina, faxed referral. There will be no available RN spots until early next week and the earliest DME can be delivered to [facility] is Monday. Emailed Nichole [email or web address] [phone] at [facility] to start discussion about patient and the coordination of discharge plan. CM team will plan to follow closely. JACKIE
--- NOTE | 2024-03-30 14:00 | DI.CT.S_ITS ---
PROCEDURE: CT HEAD/BRAIN WO CON INDICATIONS: FU SDH, SAH TECHNIQUE: Noncontrast 4.5 mm thick angled axial sections acquired from the foramen magnum to the vertex, with coronal and sagittal reformats. For radiation dose reduction, the following was used: automated exposure control, adjustment of mA and/or kV according to patient size. COMPARISON: [facility], CT, CT HEAD/BRAIN WO CON, 03/30/2024, 1:17. FINDINGS: CSF spaces: Intraventricular hemorrhage noted layering dependently in the occipital horns. No current hydrocephalus. Bifrontal diameter 4.5 cm. Brain: Bifrontal hemorrhagic traumatic brain injury includes left frontal parenchymal hematoma and bifrontal subarachnoid hemorrhage. Scattered bilateral hemispheric subarachnoid hemorrhage. Left sided sub dural is slightly improved. Focal extra-axial pneumocephalus resolved. Skull and face: Right pterional craniectomy. Left longitudinal temporal bone fracture. Right ocular prosthesis. Sinuses: Left maxillary mucosal thickening. Bilateral mastoid fluid IMPRESSION: Bifrontal traumatic brain injury with left frontal parenchymal hemorrhagic contusion now measuring 3 cm, previously 1.2 cm. 5 mm midline shift is similar to the prior exam Traumatic bilateral subarachnoid hemorrhage has increased in volume. Increasing intraventricular hemorrhage. No current hydrocephalus Longitudinal left temporal in fracture can be further evaluated with dedicated CT temporal bone Approved by: Daljit Smalls M.D. on 03/30/2024 at 15:16
[2024-03-30] MEDS: SODIUM CHLORIDE 0.9% FLUSH 10 ML IV (20:57)
[2024-03-31] VITALS: BP 155/91; PULSE 87; RESP 20; TEMP 36.3; O2SAT 100
[2024-03-31] MEDS: HYDROMORPHONE 0.5 MG INJ IV ×7 (00:50→21:11)
[2024-03-31] MEDS: HALOPERIDOL 5 MG/ML VIAL IV ×3 (05:28→21:11)
[2024-03-31 06:30] VITALS: BP 134/55; PULSE 99; RESP 22; TEMP 37.7; O2SAT 97
--- NOTE | 2024-03-31 07:36 | PM.PN.1 ---
Subjective Subjective Interval history: Summary: 84 y/o resident of [facility] with PMH of dementia, recurrent falls and worsening behaviors lately, presented after he fell, with Lt temporal bone fracture, SAH, SDH. He is DNR, DNI and unable to make decisions due to cognitive deficits. Placed in observation. Additional information: The patient is not able to communicate. I did meet with 2 sons, friend, the . He was been in memory care for about 2 weeks. He does have history of falls prior to this as well as progressive dementia and inability to be cared for at home. He was a advance directive which really does not spell out DNR but does indicate that he would not want to be maintained indefinitely if he had a terminal illness or injury. We discussed the severity of his head trauma with subdural hematoma and subarachnoid hemorrhage. S: Nonverbal. He appears comfortable. His breathing is regular. No posturing. Family spent the night, they feel he was comfortable. Exam Vital Signs (past 8 hours): - 03/31/24 00:00 03/31/24 06:30 Temperature 97.4 F L 99.9 F H Pulse Rate 87 99 H Respiratory Rate 20 22 Blood Pressure 155/91 H 134/55 L Pulse Oximetry 100 97 Oxygen Flow Rate 5 Oxygen Delivery Method Nasal Cannula Oxygen Flow Rate 5 Narrative Exam Narrative: Obtunded, no acute indication of pain. No posturing. Normal respiratory effort and rate. No spontaneous movement of arms or legs. No vocalizations. Abdomen is flat. Objective Imaging Repeat brain CT 03/30: : Radiologist's impression: Bifrontal traumatic brain injury with left frontal parenchymal hemorrhagic contusion now measuring 3 cm, previously 1.2 cm. 5 mm midline shift is similar to the prior exam Traumatic bilateral subarachnoid hemorrhage has increased in volume. Increasing intraventricular hemorrhage. 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 GLF, present on admission and active. 2. SDH, present on admission and active. 3. SAH, present on admission and active. 4. Left temporal bone fracture, present on admission and active. 4. Dementia, present on admission and active. PLAN: Comfort based care, we will work on setting up hospice at his facility. Discharge when things are organized. Met with family and answer questions. Advised against any further repeat scanning of the brain, as it would not really provide any further information. Time-Based Coding :: 25 min spent with patient and on the chart (including review of chart, obtaining history, exam, reviewing outside data, placing orders, documenting exam and treatment plan, and counseling patient) on 03/31.
[2024-03-31] MEDS: SODIUM CHLORIDE 0.9% FLUSH 10 ML IV ×2 (10:05→22:01)
--- NOTE | 2024-03-31 10:19 | DI.CT.S_ITS ---
PROCEDURE: CT HEAD/BRAIN WO CON INDICATIONS: FU SDH TECHNIQUE: Noncontrast 4.5 mm thick angled axial sections acquired from the foramen magnum to the vertex, with coronal and sagittal reformats. For radiation dose reduction, the following was used: automated exposure control, adjustment of mA and/or kV according to patient size. COMPARISON: [facility], CT, CT HEAD/BRAIN WO CON, 03/30/2024, 15:30. FINDINGS: CSF spaces: No hydrocephalus. Increasing intraventricular hemorrhage noted layering dependently in the occipital horns Brain: Left frontal parenchymal hemorrhage now measures 4.3 cm, previously 3.0 cm. Increasing surrounding vasogenic edema. Midline shift has increased to 9 mm, previously 5 mm. Bifrontal and inter hemispheric subarachnoid hemorrhage is relatively stable. Left occipital parenchymal hemorrhage 1.6 cm, stable Skull and face: Right pterional craniectomy. Right orbital prosthesis. Longitudinal left temporal bone fracture Sinuses: Visualized sinuses and mastoids are clear. IMPRESSION: Enlarging left frontal parenchymal hemorrhage with surrounding edema now results in 9 mm midline shift, previously 5 mm. Increasing intraventricular hemorrhage without evidence of current hydrocephalus Stable longitudinal left temporal bone fracture Approved by: Daljit Smalls M.D. on 03/31/2024 at 11:21
[2024-03-31 11:00] VITALS: BP 121/72; PULSE 91; RESP 20; TEMP 37.4; O2SAT 97
--- NOTE | 2024-03-31 11:29 | PC.NURSE ---
Nurse trans. patient down to CT for a repeat scan. Patient was medicated prior to transport to alleviate agitation. Patient got combative during transfer to CT table, kicked this nurse in the chest and was swinging and grabbing at other staff members. Patient was able to settle down for CT with nurse at bedside and use of CT table straps. Pt tolerated trip back to floor but became very agitated once in room and was getting re-situated in his bed. Family is aware to keep room environment peaceful and will continue with plan of care.
[2024-04-01] MEDS: HALOPERIDOL 5 MG/ML VIAL IV (01:20)
[2024-04-01] MEDS: HYDROMORPHONE 0.5 MG INJ IV ×5 (01:20→08:57)
--- NOTE | 2024-04-01 07:52 | P.PN_ITS ---
Subjective Subjective Interval history: Admitted with fall and head injury. Had SDH and SAH with progressing brain shift and intraventricular bleeding. He is comfort based care. S: obtunded. Met with family, worse breathing this morning and more pain and agitation overnight. They feel the pain is being suboptimally controlled. They are supportive of full comfort care with no opiate infusion in the hospital setting. This will be started now. Exam Vital Signs (past 8 hours): Oxygen Delivery Method Nasal Cannula Oxygen Flow Rate 2 Narrative Exam Narrative: Obtunded Lungs are clear, normal rate and effort. Heart is regular, no murmur gallop or rub. Abdomen is soft, non distended. Extremities are free of edema. No posturing. 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 GLF, present on admission and active. 2. SDH, present on admission and active. 3. SAH, present on admission and active. 4. Left temporal bone fracture, present on admission and active. 4. Dementia, present on admission and active. PLAN: -Comfort based care -Start opiate infusion, morphine. -as needed Haldol and Ativan. -cancel plans for hospice at facility. CRESCENCIO: Anticipate expiration likely within the next 24 hours. Time-Based Coding :: 30 min spent with patient and on the chart (including review of chart, obtaining history, exam, reviewing outside data, placing orders, documenting exam and treatment plan, and counseling patient) on 04/01.
[2024-04-01 08:00] VITALS: BP 130/72; PULSE 86; RESP 20; TEMP 37.1; O2SAT 85
[2024-04-01] MEDS: SODIUM CHLORIDE 0.9% FLUSH 10 ML IV (08:57)
[2024-04-01] MEDS: MORPHINE 50 MG in SODIUM CHLORIDE 0.9% 45 ML IV ×2 (11:14→19:32)
--- NOTE | 2024-04-01 13:42 | CM.DPC ---
DCP Comfort Care SW met bedside with MD and pt's spouse, Dtr, two sons and decision to make pt Comfort Care and start on Morphine drip and comfort meds as pt has seemed restless and agitated and has declined more in his responsiveness and CT imaging shows worsening bleed. MD anticipates that pt may in the hospital and family preference is for pt to remain in the hospital at this time. SW spoke to both [place] and Nichole at [facility] and they confirm that if pt stable and Hospice set up then they can accept the pt back if needed and aware pt might in the hospital. SW faxed clinicals to Nichole to review. SW spoke to Bonita at [facility] and updated on current status and requested that they attempt to put pt on their schedule for later this week (04/04) in case pt stabilizes on Comfort Meds and can discharge back to [facility] with Hospice. Plan: SW to follow closely for pt to likely in the hospital vs stabilize on Comfort Meds and discharge back to [facility] with [facility]. Sofi Chopra MSW
[2024-04-01] MEDS: CARBOXYMETHYLCELLULOSE DROPS 1 DROPS EYE-BOTH (13:58)
[2024-04-01] MEDS: LORazepam 2 MG/ML INJ 1 MG IV ×2 (13:59→19:28)
[2024-04-01 20:46] VITALS: BP 135/65; PULSE 105; RESP 18; TEMP 37.1; O2SAT 76
--- NOTE | 2024-04-01 21:16 | PC.NURSE ---
Assumed care of patient at 1900, pt on a morphine gtt at 5 mg/hour. Pt appears to be comfortable and patient's family educated that the goal of care is to keep patient comfortable.
[2024-04-02] MEDS: MORPHINE 50 MG in SODIUM CHLORIDE 0.9% 45 ML IV (04:36)
[2024-04-02] MEDS: SCOPOLAMINE 1 PATCH TOP (08:14)
--- NOTE | 2024-04-02 12:15 | PM.DDS.1 ---
Discharge Summary History of Illness Narrative: Per admitting provider, 84 y/o resident of memory care with PMH of dementia, recurrent falls and worsening behaviors lately, presented after he fell, with Lt temporal bone fracture, SAH, SDH. He is DNR, DNI and unable to make decisions due to cognitive deficits. Placed in observation. Additional information: The patient is not able to communicate. I did meet with 2 sons, friend, the . He was been in memory care for about 2 weeks. He does have history of falls prior to this as well as progressive dementia and inability to be cared for at home. He was a advance directive which really does not spell out DNR but does indicate that he would not want to be maintained indefinitely if he had a terminal illness or injury. We discussed the severity of his head trauma with subdural hematoma and subarachnoid hemorrhage. Hospital Course Date of Admission: 03/30/24 03:09 Primary care provider: Prabhu Lan MD Discharge provider: Bryn Sanon DO Discharge Diagnosis: 1. GLF, present on admission and active. 2. SDH, present on admission and active. 3. SAH, present on admission and active. 4. Left temporal bone fracture, present on admission and active. 4. Dementia, present on admission and active. Hospital Course: 84 y/o resident of memory care with PMH of dementia, recurrent falls and worsening behaviors lately, presented after he fell, with Lt temporal bone fracture, SAH, SDH. He was DNR, DNI and unable to make decisions due to cognitive deficits. Placed in observation initially. Arrangements were being made to return home with hospice after initial goals of care discussions. However he developed more difficult to control pain eventually requiring morphine infusion. This continued to be increased until he peacefully at approximately 12:07 on 04/02/2024. Objective Labs 03/30/24 01:20 03/30/24 01:20
--- NOTE | 2024-04-02 12:41 | CM.DPC ---
DCP SW spoke to Bonita at [facility] and they have a SOC spot held for pt for tomorrow 04/03 between [id number] at [facility] if needed. Per RN, pt with family bedside shortly after 1200 and RN supported family in the process. SW called [facility] Bonita and updated and they took pt off their list for tomorrow and JATINDER called Nichole at [facility] and left detailed msg with update and request to let their team know. Sofi Chopra MSW
--- NOTE | 2024-04-02 12:41 | PC.NURSE ---
Addendum entered by Jossie Romeo R.N. 04/02/24 15:33: Family took all Pt belongings with them. Pt out via gurney by [facility] Staff. Original Note: 1205 Went to Pt room to check on patient and family. Pt's breathing was agonal. Family at the bedside. Pt appeared relaxed and comfortable. Called Pt's Spouse over to speak with Pt as was imminent. Pt's Spouse held Pt's hand and the Pt slipped away while the Spouse was talking to him. Waited approximately 5 minutes to confirm Pt had and comfort family. Notified Charge Nurse and Dr. Sanon. Family would like [facility] to receive Pt and arrangements are in process.
== END 2024-04-02 15:34 | disposition expired | DRG 82 ==
LOC: ED 02:01 → AC 03:11
PROVIDERS: Admitting Provider Internal Medicine; Emergency Provider Emergency Medicine; PCP Family Medicine; Visit Provider Internal Medicine
DX: S06.5XAA Traumatic subdural hemorrhage with loss of consciousness status unknown, initial encounter (principal); S06.A0XA Traumatic brain compression without herniation, initial encounter; F03.C18 Unspecified dementia, severe, with other behavioral disturbance; N40.1 Benign prostatic hyperplasia with lower urinary tract symptoms; R35.0 Frequency of micturition; M1A.00X0 Idiopathic chronic gout, unspecified site, without tophus (tophi); F41.9 Anxiety disorder, unspecified; F32.A Depression, unspecified; H40.9 Unspecified glaucoma; S02.19XB Other fracture of base of skull, initial encounter for open fracture; S06.6XAA Traumatic subarachnoid hemorrhage with loss of consciousness status unknown, initial encounter; S06.1XAA Traumatic cerebral edema with loss of consciousness status unknown, initial encounter; W18.30XA Fall on same level, unspecified, initial encounter; Z66 Do not resuscitate; Z91.81 History of falling; Z51.5 Encounter for palliative care
CPT/HCPCS: 36415; 70450; 72125; 80053; 85025; 96374; 96375; 96376; 99284; 99291; A9270; J1170; J1630; J2060; J2270; J2405